=== PATIENT | male | born 1940 | race Caucasian/White ===

== ENCOUNTER 2016-10-09 12:16 | Emergency (ER) | payer SELFPAY ==
[~2016-10-09] VITALS: Ht 182.9 cm; Wt 62.0 kg
[~2016-10-09 12:16] MED LIST: ASPI81 PO; FURO1TAB93 PO; METO10TA PO; POTA-243 PO; PRIL20TA2 PO; PROM25SU8 PO; [UNRECOGNIZED DRUG - CODE] CHEW
[2016-10-09 12:19] VITALS: BP 148/78; PULSE 84; RESP 16; TEMP 97.9; O2SAT 97
--- NOTE | 2016-10-09 12:35 | PD ---
Physical Exam Time Seen by Provider: 12:32 Narrative 76 y/o male here for evaluation of dysphagia, n/v for 2-3 months Vital signs reviewed. Seen at triage desk. Awaiting bed placement. Data Data Last Documented VS Vital Signs Date Time Temp Pulse Resp B/P Pulse Ox O2 Delivery O2 Flow Rate FiO2 10/09/16 12:19 97.9 84 16 148/78 97 MDM Medical Record Reviewed: Yes Supervised Visit with DIXIE: Saji Ballard Oct 09, 2016 12:35
[2016-10-10] MEDS ORDERED: ZOFR4TAB3 SL (11:06)
== END 2016-10-09 15:00 | disposition left against medical advice (07) ==
LOC: NED 12:16
DX: R13.10 Dysphagia, unspecified (principal)
CPT/HCPCS: 99281

== ENCOUNTER 2016-10-10 07:28 | Emergency (ER) | payer SELFPAY ==
[~2016-10-10] VITALS: Ht 190.5 cm; Wt 60.0 kg
[2016-10-10 07:30] VITALS: BP 154/71; PULSE 81; RESP 16; TEMP 98.2; O2SAT 97
[2016-10-10] MEDS ORDERED: SODIUM CHLORIDE 0.9% FLUSH 10 ML FLUSH IV FLUSH PRN (08:00)
[2016-10-10] MEDS ORDERED: ONDANSETRON HCL 4 MG/2 ML VIAL IVP ONE (08:00)
[2016-10-10] MEDS ORDERED: FAMOTIDINE 20 MG/2 ML VIAL IV PUSH ONE (08:00)
--- NOTE | 2016-10-10 08:15 | PD ---
HPI Chief Complaint: GI Complaint Time Seen by Provider: 07:52 Travel History International Travel<30 days: No Contact w/Intl Traveler<30days: No Traveled to known affect area: No History of Present Illness HPI 76-year-old male patient with history of previous VA, CHF, COPD, gastritis, presents to the ER today for at least a month history of epigastric abdominal discomfort which has been worsening today. He is not able to rate the amount of pain but states that it makes him uncomfortable and kept him up last night. He has been nauseous but he denies any vomiting. He states that it seems to worsen mostly in the afternoons and with food intake. He also complains of shortness of breath although this is chronic for him, he has COPD he states. He denies any coughing or coughing up anything. He has been feeling generally weak, having increased belching, but denies any diarrhea, fevers, or other symptoms. He has had poor by mouth intake and states he has lost about 20 pounds in the last month. Modifying Factors: Worse with food intake Associated Signs & Symptoms: Epigastric abdominal pain Risk Factors: Gastritis history PFSH Past Medical History Cardiovascular Problems: Yes (CHF) Congestive Heart Failure: Yes COPD: Yes Diminished Hearing: Yes (RIGHT EAR DIMINSHED; PERFORATED EARDRUM "YEARS AGO") Gastrointestinal Disorders: Yes (barretts esophagitis, GASTRITIS; DISTENDED GALLBLADDER) Hiatal Hernia: Yes Psychiatric: Yes (7 MM NODE IN L LUNG; F/U SCHEDULED FOR 09/12) Respiratory: Yes (COPD) Myocardial Infarction: Yes (1981) Past Surgical History Abdominal Surgery: Yes (BILAT INGINAL HERNIAS) Tonsillectomy: Yes Social History Alcohol Use: Yes (PT DENIES AT THIS TIME; PRIOR HX STATES OCCASIONAL WINE) Tobacco Use: No Substance Use: No Allergies-Medications (Allergen,Severity, Reaction): Coded Allergies: Tetracyclines (Verified Allergy, Severe, 10/10/16) Morphine (Verified Adverse Reaction, Severe, VOMIT, 10/10/16) Reported Meds & Prescriptions Reported Meds & Active Scripts Active Reglan (Metoclopramide HCl) 10 Mg Tab 10 Mg PO TIDACHS Reported Klor-Con 10 Meq (Potassium Chloride) 10 Meq Tabcr 10 Meq PO DAILYPRN Lasix (Furosemide) 40 Mg Tab 40 Mg PO DAILYPRN Mylanta Gas (Simethicone) 125 Mg Chw 250 Mg CHEW DAILY Aspirin 81 Mg Tab 81 Mg PO DAILY Phenergan (Promethazine HCl) 25 Mg Tab 25 Mg PO HS FOR NAUSEA/VOMITING Prilosec Otc (Omeprazole Magnesium) 20 Mg Tab 40 Mg PO DAILY Review of Systems Except as stated in HPI: all other systems reviewed are Neg Physical Exam Narrative GENERAL: Well-developed elderly white male patient currently not in acute distress. Awake and oriented 3. SKIN: Focused skin assessment warm/dry. HEAD: Atraumatic. Normocephalic. EYES: Pupils equal and round. No scleral icterus. No injection or drainage. ENT: No nasal bleeding or discharge. Mucous membranes pink and moist. NECK: Trachea midline. No JVD. CARDIOVASCULAR: Irregularly irregular. No murmur appreciated. RESPIRATORY: No accessory muscle use. Clear to auscultation. Breath sounds equal bilaterally. GASTROINTESTINAL: Abdomen soft, epigastric tenderness without guarding or rebound, nondistended. Hepatic and splenic margins not palpable. MUSCULOSKELETAL: No obvious deformities. No clubbing. No cyanosis. No edema. NEUROLOGICAL: Awake and alert. No obvious cranial nerve deficits. Motor grossly within normal limits. Normal speech. PSYCHIATRIC: Appropriate mood and affect; insight and judgment normal. Data Data Last Documented VS Vital Signs Date Time Temp Pulse Resp B/P Pulse Ox O2 Delivery O2 Flow Rate FiO2 10/10/16 08:25 98 10/10/16 07:30 98.2 81 16 154/71 Orders Complete Blood Count With Diff (10/10/16 07:52) Comprehensive Metabolic Panel (10/10/16 07:52) Lipase (10/10/16 07:52) Prothrombin Time / Inr (Pt) (10/10/16 07:52) Act Partial Throm Time (Ptt) (10/10/16 07:52) Urinalysis - C+S If Indicated (10/10/16 07:52) Ct Abd/Pel W Iv Contrast(Rout) (10/10/16 07:52) Iv Access Insert/Monitor (10/10/16 07:52) Ecg Monitoring (10/10/16 07:52) Oximetry (10/10/16 07:52) Ondansetron Inj (Zofran Inj) (10/10/16 08:00) Sodium Chloride 0.9% Flush (Ns Flush) (10/10/16 08:00) Electrocardiogram (10/10/16 07:52) Chest, Single Ap (10/10/16 07:52) Famotidine Inj (Pepcid Inj) (10/10/16 08:00) Ckmb (Isoenzyme) Profile (10/10/16 07:52) Troponin I (10/10/16 07:52) Iohexol 350 Inj (Omnipaque 350 Inj) (10/10/16 10:22) Labs Laboratory Tests Test 10/10/16 10/10/16 07:55 10:00 White Blood Count 5.1 TH/MM3 Red Blood Count 3.18 MIL/MM3 Hemoglobin 11.4 GM/DL Hematocrit 33.7 % Mean Corpuscular Volume 105.7 FL Mean Corpuscular Hemoglobin 35.9 PG Mean Corpuscular Hemoglobin 34.0 % Concent Red Cell Distribution Width 12.8 % Platelet Count 159 TH/MM3 Mean Platelet Volume 8.9 FL Neutrophils (%) (Auto) 60.2 % Lymphocytes (%) (Auto) 22.8 % Monocytes (%) (Auto) 12.8 % Eosinophils (%) (Auto) 3.4 % Basophils (%) (Auto) 0.8 % Neutrophils # (Auto) 3.1 TH/MM3 Lymphocytes # (Auto) 1.2 TH/MM3 Monocytes # (Auto) 0.7 TH/MM3 Eosinophils # (Auto) 0.2 TH/MM3 Basophils # (Auto) 0.0 TH/MM3 CBC Comment DIFF FINAL Differential Comment Prothrombin Time 11.3 SEC Prothromb Time International 1.0 RATIO Ratio Activated Partial 25.9 SEC Thromboplast Time Sodium Level 138 MEQ/L Potassium Level 3.3 MEQ/L Chloride Level 101 MEQ/L Carbon Dioxide Level 29.4 MEQ/L Anion Gap 8 MEQ/L Blood Urea Nitrogen 12 MG/DL Creatinine 0.73 MG/DL Estimat Glomerular Filtration 105 ML/MIN Rate Random Glucose 134 MG/DL Calcium Level 9.5 MG/DL Total Bilirubin 0.5 MG/DL Aspartate Amino Transf 10 U/L (AST/SGOT) Alanine Aminotransferase 17 U/L (ALT/SGPT) Alkaline Phosphatase 90 U/L Total Creatine Kinase 37 U/L Troponin I LESS THAN 0.02 NG/ML Total Protein 6.8 GM/DL Albumin 3.7 GM/DL Lipase 70 U/L Urine Color YELLOW Urine Turbidity CLEAR Urine pH 6.0 Urine Specific [place] 1.015 Urine Protein NEG mg/dL Urine Glucose (UA) NEG mg/dL Urine Ketones NEG mg/dL Urine Occult Blood NEG Urine Nitrite NEG Urine Bilirubin NEG Urine Urobilinogen LESS THAN 2.0 MG/DL Urine Leukocyte Esterase NEG Urine RBC LESS THAN 1 /hpf Urine WBC LESS THAN 1 /hpf Urine Squamous Epithelial <1 /hpf Cells Urine Mucus FEW /lpf Microscopic Urinalysis Comment CULT NOT INDICATED MDM Medical Decision Making Medical Screen Exam Complete: Yes Emergency Medical Condition: Yes Medical Record Reviewed: Yes Interpretation(s) EKG shows normal sinus rhythm with occasional APCs at a rate 75 bpm. No signs of acute ST-T changes. Laboratory Tests Test 10/10/16 10/10/16 07:55 10:00 Red Blood Count 3.18 MIL/MM3 (4.50-5.90) Hemoglobin 11.4 GM/DL (13.0-17.0) Hematocrit 33.7 % (39.0-51.0) Mean Corpuscular Volume 105.7 FL (80.0-100.0) Mean Corpuscular Hemoglobin 35.9 PG (27.0-34.0) Monocytes (%) (Auto) 12.8 % (0.0-8.0) Potassium Level 3.3 MEQ/L (3.5-5.1) Random Glucose 134 MG/DL (74-106) Aspartate Amino Transf 10 U/L (15-37) (AST/SGOT) Total Creatine Kinase 37 U/L (39-308) Troponin I LESS THAN 0.02 NG/ML (0.02-0.05) Lipase 70 U/L (73-393) Urine Mucus FEW /lpf (OCC) Last 24 hours Impressions Chest X-Ray 10/10/16751 Signed Impressions: Service Date/Time: Monday, October 10, 2016 08:01 - CONCLUSION: 1. Chronic interstitial changes and scarring. No acute abnormality. Richard Khan MD Abdomen/Pelvis CT 10/10/16751 Signed Impressions: Service Date/Time: Monday, October 10, 2016 10:10 - CONCLUSION: 1. No mass or adenopathy. 2. Mild aneurysmal change of the infrarenal aorta measuring 2.7 x 2.6 cm. 3. Emphysematous changes and chronic interstitial changes within the visualized lung bases. Jason Ortiz Jr., MD Differential Diagnosis Epigastric abdominal pains, nauseagastritis versus ACS versus pancreatitis versus cholecystitis versus metabolic issues Narrative Course Patient was given IV fluids, Pepcid, nausea medications. Lab work returns did not show any significant dehydration or significant metabolic issues. CAT scan was done which shows a mild aneurysmal dilation but otherwise did not show any signs of acute processes. Patient states he knows about this issue with me aneurysm and his primary care physician has been following up with it. On reevaluation at 11 AM, he reports feeling improved. At this point, my plan would be to release him with follow-up to primary care physician and GI doctor. Return for any worsening in symptoms as needed. The plan has been discussed with him and he states understanding. Diagnosis Primary Impression: Abdominal pain Med/Other Pt SpecificInfo: Prescription(s) given Scripts Ondansetron Odt (Zofran Odt)4 Mg Tab4 Mg SL Q6HR PRN (Nausea/Vomiting) #10 TAB Ref 0 Prov:Ale Arreola MD 10/10/16 Disposition: 01 DISCHARGE HOME Condition: Stable Ale Arreola MD Oct 10, 2016 08:15
[2016-10-10 08:25] VITALS: O2SAT 98
[2016-10-10 08:55] LABS: AUTOMATED NEUTROPHIL # 3.1 TH/MM3 (1.8-7.7); BASOPHIL % 0.8 % (0.0-2.0); EOSINOPHIL # 0.2 TH/MM3 (0-0.4); EOSINOPHIL % 3.4 % (0.0-4.0); HEMATOCRIT 33.7 % (39.0-51.0); HEMO FLAGS DIFF FINAL; LYMPH % 22.8 % (9.0-44.0); LYMPHOCYTE # 1.2 TH/MM3 (1.0-4.8); MEAN CELL VOLUME 105.7 FL (80.0-100.0); MEAN CORPUSCULAR HEMOGLOBIN 35.9 PG (27.0-34.0); MONO % 12.8 % (0.0-8.0); NEUT % 60.2 % (16.0-70.0); PLATELET COUNT 159 TH/MM3 (150-450); RED BLOOD COUNT 3.18 MIL/MM3 (4.50-5.90); RED CELL DISTRIBUTION WIDTH 12.8 % (11.6-17.2); WHITE BLOOD COUNT 5.1 TH/MM3 (4.0-11.0)
[2016-10-10 08:59] LABS: APTT (PATIENT) 25.9 SEC (24.3-30.1); PROTHROMBIN TIME - PATIENT 11.3 SEC (9.8-11.6)
[2016-10-10 09:06] LABS: ANION GAP 8 MEQ/L (5-15); AST (GOT) 10 U/L (15-37); BICARBONATE 29.4 MEQ/L (21.0-32.0); BLOOD UREA NITROGEN 12 MG/DL (7-18); CHLORIDE 101 MEQ/L (98-107); GLOMERULAR FILTRATION RATE 105 ML/MIN (>89); POTASSIUM 3.3 MEQ/L (3.5-5.1); SODIUM (NA) 138 MEQ/L (136-145)
[2016-10-10 09:08] LABS: ALT (GPT) 17 U/L (12-78)
[2016-10-10 09:12] LABS: ALKALINE PHOSPHATASE 90 U/L (45-117); TOTAL BILIRUBIN ADULT 0.5 MG/DL (0.2-1.0)
[2016-10-10 09:15] LABS: CREATINE KINASE 37 U/L (39-308)
--- NOTE | 2016-10-10 09:22 | RADRPT ---
EXAM DATE/TIME: 10/10/2016 08:01 [facility] COMPARISON: No previous studies available for comparison. INDICATIONS : Evaluate for free air. Abdominal pain and mid-chest pain. MEDICAL HISTORY : Chronic obstructive pulmonary disease. Gastroesophageal reflux disease. SURGICAL HISTORY : Inguinal hernia repair. ENCOUNTER: Initial ACUITY: 2 months PAIN SCORE: 6/10 LOCATION: Bilateral chest FINDINGS: The heart is normal in size. The exam demonstrates chronic interstitial changes throughout the pulmon josue parenchyma. There is scarring in the right lung apex. Visualized bony structures are grossly intact. CONCLUSION: 1. Chronic interstitial changes and scarring. No acute abnormality. Richard Khan MD on October 10, 2016 at 8:36 Board Certified Radiologist. This report was verified electronically.
[2016-10-10] MEDS ORDERED: IOHEXOL 350 MG/ML 10 ML VIAL (for RAD DIAG) IV ONE (10:22)
[2016-10-10 10:23] LABS: BLOOD, URINE NEG (NEG); COMMENT (UR) CULT NOT INDICATED; CULTURE IF INDICATED CULT NOT INDICATED; GLUCOSE,URINE NEG (NEG); KETONE, URINE NEG (NEG); MUCUS URINE FEW /lpf (OCC); NITRITE,URINE NEG (NEG); SQUAMOUS EPITHELIAL CELL URINE <1 /hpf (0-5); URINE COLOR YELLOW (YELLW/STRAW)
--- NOTE | 2016-10-10 10:54 | RADRPT ---
EXAM DATE/TIME: 10/10/2016 10:10 [facility] COMPARISON: No previous studies available for comparison. INDICATIONS : Abdominal pain, rapid weight loss. IV CONTRAST: 80 cc Omnipaque 350 (iohexol) IV ORAL CONTRAST: No oral contrast ingested. RADIATION DOSE: 4.59 CTDIvol (mGy) MEDICAL HISTORY : Cardiovascular disease. COPD SURGICAL HISTORY : ENCOUNTER: Initial ACUITY: 1 day PAIN SCALE: 4/10 LOCATION: upper quadrant Epigastric pain TECHNIQUE: Volumetric scanning of the abdomen and pelvis was performed. Using automated exposure control and ad justment of the mA and/or kV according to patient size, radiation dose was kept as low as reasonably achievable to obtain optimal diagnostic quality images. FINDINGS: LOWER LUNGS: Emphysematous changes involving the visualized lung bases. Chronic interstitial change also noted. LIVER: Homogeneous density without lesion. There is no dilation of the biliary tree. No calcified gallston es. SPLEEN: Normal size without lesion. PANCREAS: Within normal limits. KIDNEYS: Normal in size and shape. There is no mass, stone or hydronephrosis. ADRENAL GLANDS: Within normal limits. VASCULAR: Diffuse atherosclerotic plaque. Minimal fusiform aneurysmal change of the infrarenal aorta 2.7 x 2.6 cm. BOWEL/MESENTERY: The stomach, small bowel, and colon demonstrate no acute abnormality. There is no free intraperitone al air or fluid. ABDOMINAL WALL: Within normal limits. RETROPERITONEUM: There is no lymphadenopathy. BLADDER: No wall thickening or mass. REPRODUCTIVE: Within normal limits. INGUINAL: There is no lymphadenopathy or hernia. MUSCULOSKELETAL: Within normal limits for patient age. CONCLUSION: 1. No mass or adenopathy. 2. Mild aneurysmal change of the infrarenal aorta measuring 2.7 x 2.6 cm. 3. Emphysematous changes and chronic interstitial changes within the visualized lung bases. Jason Ortiz Jr., MD on October 10, 2016 at 10:40 Board Certified Radiologist. This report was verified electronically.
[2016-10-10] MEDS ORDERED: ZOFR4TAB3 SL (11:06)
[2016-10-10 11:16] VITALS: BP 134/79
--- NOTE | 2016-10-10 22:01 | EKG ---
Date Performed: 10/10/2016 Time Performed: 08:27:12 PTAGE: 76 years EKG: Sinus rhythm WITH OCCASIONAL SUPRAVENTRICULAR PREMATURE COMPLEXES Since previous tracing, no significant change n oted BORDERLINE ECG PREVIOUS TRACING : 08/11/2008 09.57 DOCTOR: Javon Silva Interpretating Date/Time 10/10/2016 21:58:19
== END 2016-10-10 11:27 | disposition home or self-care (01) ==
LOC: NEPC 07:28
DX: R10.13 Epigastric pain (principal); R94.31 Abnormal electrocardiogram [ECG] [EKG]; I50.9 Heart failure, unspecified; J44.9 Chronic obstructive pulmonary disease, unspecified; R11.0 Nausea
CPT/HCPCS: 71010; 74177; 80053; 81001; 82550; 83690; 84484; 85025; 85610; 85730; 93005; 96374; 96375; 99285; J2405; Q9967

== ENCOUNTER 2017-05-13 07:08 | Emergency (ER) | payer SELFPAY ==
[~2017-05-13] VITALS: Ht 190.5 cm; Wt 77.0 kg
[~2017-05-13 07:08] MED LIST changes: +ZOFR4TAB3 SL
[2017-05-13 07:09] VITALS: BP 137/82; PULSE 78; RESP 18; TEMP 98.9; O2SAT 98
[2017-05-13] MEDS ORDERED: OMEP40CA2 PO (07:24)
[2017-05-13] MEDS ORDERED: SIME1CAP17 PO (07:24)
[2017-05-13] MEDS ORDERED: FURO1TAB60 PO (07:24)
[2017-05-13] MEDS ORDERED: ASPI-516 CHEW (07:24)
[2017-05-13] MEDS ORDERED: POTA10TA2 PO (07:24)
--- NOTE | 2017-05-13 07:47 | PD ---
HPI Chief Complaint: Cold / Flu Symptoms Time Seen by Provider: 07:18 Travel History International Travel<30 days: No Contact w/Intl Traveler<30days: No Traveled to known affect area: No History of Present Illness HPI This patient complains of runny nose and congestion and cough for several days. He denies fever. He is not short of breath. He says local doctors will not see him because he has no insurance. He never bothered to sign up for Medicare despite his age of 76. The patient has some chronic GI issues but nothing acute or new today. He's had extensive workup including CT imaging and endoscopies and had been following with GI. He has no idea how long he is going to be in this current area. Severity is mild. No alleviating factors. He does not have Chest pain. PFSH Past Medical History Cardiovascular Problems: Yes Congestive Heart Failure: Yes COPD: Yes Diminished Hearing: Yes (RIGHT EAR DIMINSHED; PERFORATED EARDRUM "YEARS AGO") Gastrointestinal Disorders: Yes (barretts esophagitis, GASTRITIS; DISTENDED GALLBLADDER) Hiatal Hernia: Yes Psychiatric: Yes (7 MM NODE IN L LUNG; F/U SCHEDULED FOR 09/12) Respiratory: Yes (COPD) Myocardial Infarction: Yes (1981) Past Surgical History Abdominal Surgery: Yes (BILAT INGINAL HERNIAS) Tonsillectomy: Yes Social History Alcohol Use: Yes (PT DENIES AT THIS TIME; PRIOR HX STATES OCCASIONAL WINE) Tobacco Use: No Substance Use: No Allergies-Medications (Allergen,Severity, Reaction): Coded Allergies: doxycycline (Unverified Allergy, Severe, 12/19/16) minocycline (Unverified Allergy, Severe, 12/19/16) tigecycline (Unverified Allergy, Severe, 12/19/16) morphine (Unverified Adverse Reaction, Severe, VOMIT, 12/19/16) Reported Meds & Prescriptions Reported Meds & Active Scripts Active Reported Simethicone 125 Mg Cap 125 Mg PO DAILY Potassium Chloride ER (Potassium Chloride) 10 Meq Tab 10 Meq PO DAILY Omeprazole 40 Mg Cap 40 Mg PO DAILY Lasix (Furosemide) 40 Mg Tab 40 Mg PO DAILY Aspirin 81 Mg Chew 81 Mg CHEW DAILY Review of Systems General / Constitutional: No: Fever HENT: No: Headaches Respiratory: Positive: Cough Gastrointestinal: No: Diarrhea Physical Exam Narrative GENERAL: Well-nourished, well-developed patient. SKIN: Focused skin assessment warm/dry. HEAD: Normocephalic. EYES: No scleral icterus. No injection or drainage. NECK: Supple, trachea midline. No JVD or lymphadenopathy. CARDIOVASCULAR: Regular rate and rhythm without murmurs, gallops, or rubs. RESPIRATORY: Breath sounds equal bilaterally. No accessory muscle use. GASTROINTESTINAL: Abdomen soft, non-tender, nondistended. MUSCULOSKELETAL: No cyanosis, or edema. BACK: Nontender without obvious deformity. No CVA tenderness. Data Data Last Documented VS Vital Signs Date Time Temp Pulse Resp B/P (MAP) Pulse Ox O2 Delivery O2 Flow Rate FiO2 05/13/17 07:17 16 Room Air 05/13/17 07:09 98.9 78 137/82 (100) 98 MDM Medical Decision Making Medical Screen Exam Complete: Yes Emergency Medical Condition: Yes Medical Record Reviewed: Yes Differential Diagnosis Bronchitis, flu syndrome, URI Narrative Course I have reviewed the patient's electronic medical record. Presentation is consistent with an acute viral syndrome. He has runny nose congestion and cough but clear lungs and normal vital signs. Supportive care is discussed. I don't see indication for antibiotics or extensive workup. He has chronic GI issues that I recommended he follow up with wherever he is going to be staying long-term I recommended he signed up for Medicare to assist with him getting a physician He has quit smoking. I offered him a breathing inhaler for symptom relief but he declines. Diagnosis Primary Impression: Acute viral syndrome Additional Instructions: The patient was advised to follow up with their physician and return if they worsen. Med/Other Pt SpecificInfo: Other Disposition: 01 DISCHARGE HOME Condition: Stable Roni Sin MD May 13, 2017 07:47
== END 2017-05-13 08:10 | disposition home or self-care (01) ==
LOC: NEPC 07:08
DX: B34.9 Viral infection, unspecified (principal); I50.9 Heart failure, unspecified; J44.9 Chronic obstructive pulmonary disease, unspecified; I25.2 Old myocardial infarction; Z87.19 Personal history of other diseases of the digestive system; Z79.82 Long term (current) use of aspirin; Z79.899 Other long term (current) drug therapy; Z88.5 Allergy status to narcotic agent; Z88.8 Allergy status to other drugs, medicaments and biological substances
CPT/HCPCS: 99281

== ENCOUNTER 2017-08-23 06:19 | Emergency (ER) | payer SELFPAY ==
[~2017-08-23] VITALS: Ht 182.9 cm; Wt 56.5 kg
[~2017-08-23 06:19] MED LIST changes: +ASPI-516 CHEW; -ASPI81 PO; +FURO1TAB60 PO; -FURO1TAB93 PO; -METO10TA PO; +OMEP40CA2 PO; -POTA-243 PO; +POTA10TA2 PO; -PRIL20TA2 PO; -PROM25SU8 PO; +SIME1CAP17 PO; -ZOFR4TAB3 SL; -[UNRECOGNIZED DRUG - CODE] CHEW
[2017-08-23 06:24] VITALS: BP 145/79; PULSE 75; RESP 16; TEMP 97.2
[2017-08-23 06:34] VITALS: BP 151/94; PULSE 98; RESP 20; O2SAT 99
[2017-08-23] MEDS ORDERED: SODIUM CHLOR 0.9% 1000 ML INJ 1,000 ML IV SCH (06:38)
[2017-08-23] MEDS ORDERED: PROM25TA10 PO (06:40)
[2017-08-23] MEDS ORDERED: FAMO20TA2 PO (06:41)
[2017-08-23] MEDS ORDERED: MORPHINE SULFATE 2 MG/ML SYRINGE IV PUSH ONE (06:45)
[2017-08-23] MEDS ORDERED: PANTOPRAZOLE SODIUM 40 MG VIAL IVP ONE (06:45)
[2017-08-23] MEDS ORDERED: RESP: ALBUTEROL 2.5 MG/IPRATROPIUM 0.5 MG NEB (SCH) NEB ONE (06:45)
[2017-08-23] MEDS ORDERED: SODIUM CHLORIDE 0.9% FLUSH 10 ML FLUSH IV FLUSH PRN (06:45)
[2017-08-23] MEDS ORDERED: ONDANSETRON HCL 4 MG/2 ML VIAL IVP ONE (06:45)
--- NOTE | 2017-08-23 06:49 | PD ---
HPI Chief Complaint: Respiratory Distress Time Seen by Provider: 06:38 Travel History International Travel<30 days: No Contact w/Intl Traveler<30days: No Traveled to known affect area: No History of Present Illness HPI 77-year-old male presents to the emergency department for complaint of several weeks of shortness of breath at rest and on exertion. Patient is also known approximately 20 pound weight loss in the past few months. Patient has prior history of tobacco use and hypertension. Patient complains of 1-2/10 intensity abdominal discomfort. Patient states symptoms are worse on the right flank and right chest area when resting on his right side. Patient does not report anorexia nausea vomiting fever chills or diarrhea constipation. No report of hematemesis coffee-ground emesis melena or hematochezia. No report of dysuria frequency urgency hematuria. No report of injury or fall. Patient does have history of COPD and has chronic shortness of breath but states that this is more so than his normal. Patient states October 2016 he had similar abdominal pain at which time he was told he had small dilation of his aorta. Patient does not have a primary care provider and has not had any follow-up. Patient does not describe any ripping or tearing sensation in the chest back or abdomen. Patient denies any arm or leg numbness tingling or weakness and is not report any claudication. PFSH Past Medical History Narrative Medical CAD [place] CHF COPD diminished hearing abdominal aortic aneurysm Rodrigues's esophagitis inguinal herniorrhaphy tonsillectomy occasional alcohol use; nursing notes reviewed Cardiovascular Problems: Yes Congestive Heart Failure: Yes COPD: Yes Diminished Hearing: Yes (RIGHT EAR DIMINSHED; PERFORATED EARDRUM "YEARS AGO") Gastrointestinal Disorders: Yes (barretts esophagitis, GASTRITIS; DISTENDED GALLBLADDER) Hiatal Hernia: Yes Psychiatric: Yes (7 MM NODE IN L LUNG; F/U SCHEDULED FOR 09/12) Respiratory: Yes (COPD) Myocardial Infarction: Yes (1981) Past Surgical History Abdominal Surgery: Yes (BILAT INGINAL HERNIAS) Tonsillectomy: Yes Social History Alcohol Use: Yes (PT DENIES AT THIS TIME; PRIOR HX STATES OCCASIONAL WINE) Tobacco Use: No Substance Use: No Allergies-Medications (Allergen,Severity, Reaction): Coded Allergies: doxycycline (Unverified Allergy, Severe, 08/23/17) minocycline (Unverified Allergy, Severe, 08/23/17) tigecycline (Unverified Allergy, Severe, 08/23/17) morphine (Unverified Adverse Reaction, Severe, VOMIT, 08/23/17) Reported Meds & Prescriptions Reported Meds & Active Scripts Active Reported Famotidine 20 Mg Tab 20 Mg PO DAILY Phenergan (Promethazine HCl) 25 Mg Tablet 25 Mg PO ONCE Simethicone 125 Mg Cap 125 Mg PO DAILY Omeprazole 40 Mg Cap 40 Mg PO DAILY Aspirin 81 Mg Chew 81 Mg CHEW DAILY Review of Systems Except as stated in HPI: all other systems reviewed are Neg General / Constitutional: Positive: Weight Loss, No: Fever, Chills HENT: No: Congestion Cardiovascular: No: Chest Pain or Discomfort, Palpitations, Diaphoresis Respiratory: Positive: Shortness of Breath Gastrointestinal: Positive: Abdominal Pain, No: Nausea, Vomiting, Diarrhea Genitourinary: No: Dysuria Musculoskeletal: No: Myalgias, Arthralgias Skin: No Rash Neurologic: No: Weakness, Dizziness, Syncope Psychiatric: Positive: Anxiety Hematologic/Lymphatic: No: Easy Bruising Physical Exam Narrative GENERAL: Well-developed cachectic male in no acute distress SKIN: Warm and dry. HEAD: Normocephalic. EYES: No scleral icterus. No injection or drainage. NECK: Supple, trachea midline. No JVD or lymphadenopathy. CARDIOVASCULAR: Increased regular rate and rhythm without murmurs, gallops, or rubs. RESPIRATORY: Breath sounds equal bilaterally. No accessory muscle use. GASTROINTESTINAL: Abdomen soft, non-tender but palpable midline pulsatile mass, nondistended. MUSCULOSKELETAL: No cyanosis, or edema. BACK: Nontender without obvious deformity. No CVA tenderness. Data Data Last Documented VS Vital Signs Date Time Temp Pulse Resp B/P (MAP) Pulse Ox O2 Delivery O2 Flow Rate FiO2 08/23/17 06:34 98 20 151/94 (113) 99 Room Air 08/23/17 06:24 97.2 Orders Orders Complete Blood Count With Diff (08/23/17 06:38) Comprehensive Metabolic Panel (08/23/17 06:38) Lipase (08/23/17 06:38) Lactic Acid (08/23/17 06:38) Prothrombin Time / Inr (Pt) (08/23/17 06:38) Act Partial Throm Time (Ptt) (08/23/17 06:38) Urinalysis - C+S If Indicated (08/23/17 06:38) Iv Access Insert/Monitor (08/23/17 06:38) Ecg Monitoring (08/23/17 06:38) Oximetry (08/23/17 06:38) Ondansetron Inj (Zofran Inj) (08/23/17 06:45) Pantoprazole Inj (Protonix Inj) (08/23/17 06:45) Sodium Chlor 0.9% 1000 Ml Inj (Ns 1000 M (08/23/17 06:38) Sodium Chloride 0.9% Flush (Ns Flush) (08/23/17 06:45) Electrocardiogram (08/23/17 06:38) Chest, Single Ap (08/23/17 06:38) Cta Thor Abd Aorta W Iv C W3d (08/23/17 ) Morphine Inj (Morphine Inj) (08/23/17 06:45) Albuterol-Ipratropium Neb (Duoneb Neb) (08/23/17 06:45) Type And Screen (08/23/17 06:38) Magnesium (Mg) (08/23/17 06:38) Thyroid Stimulating Hormone (08/23/17 06:38) Electrocardiogram (08/23/17 ) MDM Medical Decision Making Medical Screen Exam Complete: Yes Emergency Medical Condition: Yes Medical Record Reviewed: Yes Differential Diagnosis Dyspnea, COPD exacerbation, anemia, malignancy, abdominal aortic aneurysm, ACS, [place], pancreatitis, biliary colic Narrative Course Patient placed on cardiac nurse specialist IV access obtained specimens collected and sent for resulting; patient administer DuoNeb updraft 1 maintenance IV fluids at 1 25 cc an hour and Zofran 4 mg IV as well as Protonix 40 mg IV and morphine sulfate 2 mg IV 1 dose At 6:50 AM care signed over to oncoming physician, Kellee Jose MD Aug 23, 2017 06:49
[2017-08-23 07:05] LABS: AUTOMATED NEUTROPHIL # 2.9 TH/MM3 (1.8-7.7); BASOPHIL # 0.1 TH/MM3 (0-0.2); BASOPHIL % 1.2 % (0.0-2.0); EOSINOPHIL # 0.3 TH/MM3 (0-0.4); EOSINOPHIL % 4.5 % (0.0-4.0); HEMATOCRIT 36.7 % (39.0-51.0); HEMOGLOBIN 12.3 GM/DL (13.0-17.0); LYMPH % 31.3 % (9.0-44.0); LYMPHOCYTE # 1.9 TH/MM3 (1.0-4.8); MEAN CELL VOLUME 105.7 FL (80.0-100.0); MEAN CORPUSCULAR HEMOGLOBIN 35.3 PG (27.0-34.0); MEAN CORPUSCULAR HGB CONC 33.4 % (32.0-36.0); MEAN PLATELET VOLUME 7.6 FL (7.0-11.0); MONO % 15.2 % (0.0-8.0); MONOCYTE # 0.9 TH/MM3 (0-0.9); NEUT % 47.8 % (16.0-70.0); PLATELET COUNT 232 TH/MM3 (150-450); RED BLOOD COUNT 3.47 MIL/MM3 (4.50-5.90); RED CELL DISTRIBUTION WIDTH 12.8 % (11.6-17.2); WHITE BLOOD COUNT 6.2 TH/MM3 (4.0-11.0)
[2017-08-23 07:08] VITALS: BP 148/89; PULSE 95; RESP 23; O2SAT 100
[2017-08-23 07:15] LABS: INTERNATIONAL NORMALIZED RATIO 1.1 RATIO; PROTHROMBIN TIME - PATIENT 10.7 SEC (9.8-11.6)
[2017-08-23 07:27] LABS: ALBUMIN 3.6 GM/DL (3.4-5.0); ALT (GPT) 20 U/L (12-78); AST (GOT) 17 U/L (15-37); BICARBONATE 31.4 MEQ/L (21.0-32.0); BLOOD UREA NITROGEN 12 MG/DL (7-18); CALCIUM 9.2 MG/DL (8.5-10.1); CHLORIDE 96 MEQ/L (98-107); CREATININE 0.63 MG/DL (0.60-1.30); GLOMERULAR FILTRATION RATE 124 ML/MIN (>89); GLUCOSE,RANDOM 90 MG/DL (74-106); MAGNESIUM 1.4 MG/DL (1.5-2.5); SODIUM (NA) 135 MEQ/L (136-145)
--- NOTE | 2017-08-23 07:34 | RADRPT ---
EXAM DATE/TIME: 08/23/2017 07:13 [facility] COMPARISON: CHEST SINGLE AP, October 10, 2016, 8:01. INDICATIONS : Shortness of breath. MEDICAL HISTORY : Chronic obstructive pulmonary disease. Cardiovascular disease. SURGICAL HISTORY : None. ENCOUNTER: Initial ACUITY: 1 day PAIN SCORE: 0/10 LOCATION: Bilateral chest FINDINGS: AP upright portable view of the chest demonstrates a stable appearance of hyperinflation with diffuse areas of interstitial thickening and bronchiectasis identified throughout lungs. No new air space ab normality identified. Heart size appears normal. Pulmonary vasculature appears normal. Osseous struct ures are unremarkable. CONCLUSION: Stable appearance of severe centrilobular emphysema with extensive areas of interstitial thickening a nd bronchiectasis.. Bella Tierney MD on August 23, 2017 at 7:31 Board Certified Radiologist. This report was verified electronically.
[2017-08-23 07:37] LABS: ALKALINE PHOSPHATASE 99 U/L (45-117); TOTAL BILIRUBIN ADULT 0.4 MG/DL (0.2-1.0); TOTAL PROTEIN 7.1 GM/DL (6.4-8.2)
[2017-08-23] MEDS ORDERED: IOHEXOL 350 MG/ML 10 ML VIAL (for RAD DIAG) IVCONTRAST ONE (07:59)
--- NOTE | 2017-08-23 08:38 | RADRPT ---
EXAM DATE/TIME: 08/23/2017 07:57 [place] COMPARISON: No previous studies available for comparison. INDICATIONS : Right back pain and shortness of breath IV CONTRAST: 75 cc Omnipaque 350 (iohexol) IV RADIATION DOSE: 8.82 CTDIvol (mGy) MEDICAL HISTORY : Chronic obstructive pulmonary disease. Hernia, inguinal. SURGICAL HISTORY : None. ENCOUNTER: Initial ACUITY: 1 day PAIN SCALE: 7/10 LOCATION: Right upper back TECHNIQUE: Volumetric scanning was performed using a multi-row detector CT scanner. The data was post processed with a variety of visualization algorithms including full volume maximum intensity projection, multi -planar sliding thin slab reformation, curved planar reformation, and surface rendering techniques. Using automated exposure control and adjustment of the mA and/or kV according to patient size, radiat ion dose was kept as low as reasonably achievable to obtain optimal diagnostic quality images. DICOM format image data is available electronically for review and comparison. FINDINGS: LUNGS: Severe bullous changes in the upper lobes greater on the right. Scattered areas of consolidation thro ughout the right upper lobe and left upper lobe. There are bronchiectatic changes and honeycombing in the lung bases. Parenchymal density in the right lower lobe adjacent to the major fissure measures 1 .9 x 1 point centimeters. Parenchymal density in the lingula adjacent to the major fissure measures 3 .2 x 2.7 cm. Ill-defined parenchymal density seen within the left lower lobe. MEDIASTINUM: No abnormally enlarged lymph nodes by CT criteria. No axillary or hilar abnormalities are identified. Coronary artery calcifications. ABDOMEN: The liver and spleen are free of focal defects. The gallbladder and pancreas demonstrate no abnormali ty. The adrenal glands are normal. The kidneys demonstrate no evidence of solid renal mass or hydrone phrosis. No free fluid or abdominal masses are identified. No para-aortic adenopathy is seen. PELVIS: No evidence of free fluid or pelvic mass. No abnormally enlarged inguinal or retroperitoneal lymph no whit are present. The bladder is unremarkable. THORACIC AORTA: The thoracic aortic root is normal with normal branching of the great vessels. There is no evidence of aneurysm or dissection. Atherosclerotic changes. ABDOMINAL AORTA: Diffuse atherosclerotic changes. Infrarenal abdominal aorta distally measures 3.3 x 2.4 cm.. The kavita al arteries are patent bilaterally. The proximal celiac and superior mesenteric arteries are patent and normal in diameter. PELVIC VESSELS: The internal iliac and external iliac vessels are patent without aneurysm or stenosis. CONCLUSION: 1. Infrarenal abdominal aortic aneurysm measures 3.2 cm. 2. Severe bullous emphysema and bibasilar pulmonary fibrosis. 3. Scattered irregular parenchymal densities more prominent within the right lower lobe and lingula. Outpatient PET CT scan recommended. 4. No thoracic/abdominal aortic dissection. Ridge Umaña MD on August 23, 2017 at 8:26 Board Certified Radiologist. This report was verified electronically.
[2017-08-23 08:41] LABS: BILIRUBIN, URINE NEG (NEG); BLOOD, URINE NEG (NEG); GLUCOSE,URINE NEG (NEG); KETONE, URINE NEG (NEG); MUCUS URINE FEW /lpf (OCC); NITRITE,URINE NEG (NEG); PH, URINE 7.5 (5.0-8.5); URINE COLOR YELLOW (YELLW/STRAW); URINE LEUKOCYTE ESTERASE NEG (NEG)
--- NOTE | 2017-08-23 08:57 | PD ---
Physical Exam Date Seen by Provider: Aug 23, 2017 Narrative Care of this patient was assumed at 7 AM. The patient presented complaining with increased dyspnea. He reports a history of COPD and has chronic dyspnea. He reports dyspnea on exertion. Dyspnea was worse during the night last night causing him to present to the hospital. In addition, the patient reports a 20 pound weight loss in the recent past. He reports dental problems as well as chronic stomach problems which prevent him from eating appropriately. Data Data Last Documented VS Vital Signs Date Time Temp Pulse Resp B/P (MAP) Pulse Ox O2 Delivery O2 Flow Rate FiO2 08/23/17 07:12 95 23 100 Room Air 08/23/17 07:08 148/89 (108) 08/23/17 06:24 97.2 Orders Orders Complete Blood Count With Diff (08/23/17 06:38) Comprehensive Metabolic Panel (08/23/17 06:38) Lipase (08/23/17 06:38) Lactic Acid (08/23/17 06:38) Prothrombin Time / Inr (Pt) (08/23/17 06:38) Act Partial Throm Time (Ptt) (08/23/17 06:38) Urinalysis - C+S If Indicated (08/23/17 06:38) Iv Access Insert/Monitor (08/23/17 06:38) Ecg Monitoring (08/23/17 06:38) Oximetry (08/23/17 06:38) Ondansetron Inj (Zofran Inj) (08/23/17 06:45) Pantoprazole Inj (Protonix Inj) (08/23/17 06:45) Sodium Chlor 0.9% 1000 Ml Inj (Ns 1000 M (08/23/17 06:38) Sodium Chloride 0.9% Flush (Ns Flush) (08/23/17 06:45) Electrocardiogram (08/23/17 06:38) Chest, Single Ap (08/23/17 06:38) Cta Thor Abd Aorta W Iv C W3d (08/23/17 ) Morphine Inj (Morphine Inj) (08/23/17 06:45) Albuterol-Ipratropium Neb (Duoneb Neb) (08/23/17 06:45) Type And Screen (08/23/17 06:38) Magnesium (Mg) (08/23/17 06:38) Thyroid Stimulating Hormone (08/23/17 06:38) Iohexol 350 Inj (Omnipaque 350 Inj) (08/23/17 07:59) Resp Home Oxygen Walk Test (08/23/17 ) Labs Laboratory Tests Test 08/23/17 06:45 08/23/17 08:20 White Blood Count 6.2 TH/MM3 Red Blood Count 3.47 MIL/MM3 Hemoglobin 12.3 GM/DL Hematocrit 36.7 % Mean Corpuscular Volume 105.7 FL Mean Corpuscular Hemoglobin 35.3 PG Mean Corpuscular Hemoglobin Concent 33.4 % Red Cell Distribution Width 12.8 % Platelet Count 232 TH/MM3 Mean Platelet Volume 7.6 FL Neutrophils (%) (Auto) 47.8 % Lymphocytes (%) (Auto) 31.3 % Monocytes (%) (Auto) 15.2 % Eosinophils (%) (Auto) 4.5 % Basophils (%) (Auto) 1.2 % Neutrophils # (Auto) 2.9 TH/MM3 Lymphocytes # (Auto) 1.9 TH/MM3 Monocytes # (Auto) 0.9 TH/MM3 Eosinophils # (Auto) 0.3 TH/MM3 Basophils # (Auto) 0.1 TH/MM3 CBC Comment DIFF FINAL Differential Comment Prothrombin Time 10.7 SEC Prothromb Time International Ratio 1.1 RATIO Activated Partial Thromboplast Time 24.8 SEC Blood Urea Nitrogen 12 MG/DL Creatinine 0.63 MG/DL Random Glucose 90 MG/DL Total Protein 7.1 GM/DL Albumin 3.6 GM/DL Calcium Level 9.2 MG/DL Magnesium Level 1.4 MG/DL Alkaline Phosphatase 99 U/L Aspartate Amino Transf (AST/SGOT) 17 U/L Alanine Aminotransferase (ALT/SGPT) 20 U/L Total Bilirubin 0.4 MG/DL Sodium Level 135 MEQ/L Potassium Level 3.9 MEQ/L Chloride Level 96 MEQ/L Carbon Dioxide Level 31.4 MEQ/L Anion Gap 8 MEQ/L Estimat Glomerular Filtration Rate 124 ML/MIN Lactic Acid Level 1.5 mmol/L Lipase 60 U/L Thyroid Stimulating Hormone 3rd Gen 1.830 uIU/ML Urine Color YELLOW Urine Turbidity CLEAR Urine pH 7.5 Urine Specific [place] 1.019 Urine Protein NEG mg/dL Urine Glucose (UA) NEG mg/dL Urine Ketones NEG mg/dL Urine Occult Blood NEG Urine Nitrite NEG Urine Bilirubin NEG Urine Urobilinogen LESS THAN 2.0 MG/DL Urine Leukocyte Esterase NEG Urine RBC LESS THAN 1 /hpf Urine WBC 1 /hpf Urine Mucus FEW /lpf Microscopic Urinalysis Comment CULT NOT INDICATED MDM Supervised Visit with DIXIE: No Narrative Course The patient is awake and alert and does not appear to be in any distress. He has had duo nebs. His lungs are now clear with full air movement throughout. Oxygen saturation on room air at rest is 100%. CBC & BMP Diagram 08/23/17 06:45 Total Protein 7.1, Albumin 3.6, Calcium Level 9.2, Magnesium Level 1.4 L, Alkaline Phosphatase 99, Aspartate Amino Transf (AST/SGOT) 17, Alanine Aminotransferase (ALT/SGPT) 20, Total Bilirubin 0.4 LA 1.5 Last Impressions Chest X-Ray 08/23/17 0638 Signed Impressions: Service Date/Time: August 07:13 - CONCLUSION: Stable appearance of severe centrilobular emphysema with extensive areas of interstitial thickening and bronchiectasis.. Bella Tierney MD Aorta CTA 08/23/17 0000 Signed Impressions: Service Date/Time: August 07:57 - CONCLUSION: 1. Infrarenal abdominal aortic aneurysm measures 3.2 cm. 2. Severe bullous emphysema and bibasilar pulmonary fibrosis. 3. Scattered irregular parenchymal densities more prominent within the right lower lobe and lingula. Outpatient PET CT scan recommended. 4. No thoracic/abdominal aortic dissection. Ridge Umaña MD UA is negative for infection. I will have respiratory therapy walked the patient and reassess for hypoxia with ambulation. He passed a walking test. I will discharge him home with a referral to the [facility]. Diagnosis Primary Impression: Dyspnea Qualified Codes: R06.09 - Other forms of dyspnea Additional Impressions: COPD (chronic obstructive pulmonary disease) Qualified Codes: J44.9 - Chronic obstructive pulmonary disease, unspecified Abdominal pain Qualified Codes: R10.13 - Epigastric pain Referrals: [facility] Patient Instructions: Dyspnea (DC), General Instructions Med/Other Pt SpecificInfo: Prescription(s) given Scripts Albuterol 18 GM Inh (Ventolin Hfa 18 GM Inh) 90 Mcg/Act Aer 2 PUFF INH Q4H Y for SHORTNESS OF BREATH, #1 INHALER 0 Refills Prov: Norma Rahman MD 08/23/17 Disposition: 01 DISCHARGE HOME Condition: Stable Norma Rahman MD Aug 23, 2017 08:57
[2017-08-23] MEDS ORDERED: VENTAER INH (09:14)
[2017-08-23 09:37] VITALS: BP 138/81
--- NOTE | 2017-08-23 14:00 | EKG ---
Date Performed: 08/23/2017 Time Performed: 06:45:21 PTAGE: 77 years EKG: ATRIAL FIBRILLATION vs multifocal atrial tachycardia There does appear to be clear organize d atrial activity throughout much of this tracing, however there is significant baseline artifact whi ch obscures the precise reading. MAT is a possibility. Repeat EKG with a more clear baseline to deter mine whether this tracing represents MAT or afib. ABNORMAL RHYTHM ECG Compared to PREVIOUS TRACING narrow complex tachycardia has replaced Sinus rhythm . PREVIOUS TRACIN10/10/2016 08.27 DOCTOR: Rogerio Marshall Interpretating Date/Time 08/23/2017 14:56:04
== END 2017-08-23 09:34 | disposition home or self-care (01) ==
LOC: NEPC 06:19
DX: R06.09 Other forms of dyspnea (principal); J44.9 Chronic obstructive pulmonary disease, unspecified; Z87.891 Personal history of nicotine dependence; I50.9 Heart failure, unspecified; I11.0 Hypertensive heart disease with heart failure; I25.2 Old myocardial infarction
CPT/HCPCS: 71045; 71275; 74174; 80053; 81001; 83605; 83690; 83735; 84443; 85025; 85610; 85730; 86850; 86900; 86901; 93005; 94618; 94664; 96361; 96374; 96375; 99285; C9113; J2405; J7030; Q9967